=== PATIENT | male | born 1990 | race African-American/Black ===

== ENCOUNTER 2020-01-08 09:26 | Emergency (ER) | payer SELFPAY ==
[~2020-01-08] VITALS: Ht 182.9 cm; Wt 59.0 kg
[2020-01-08 09:36] VITALS: BP 128/70
--- NOTE | 2020-01-08 09:36 | NUR ---
ED Nurse Note:pt. was BIBA from home with abdominal pain for 2 hrs, A/ox4 ambulatory
[2020-01-08] MEDS ORDERED: FAMOTIDINE20 MG ORAL (09:57)
[2020-01-08] MEDS ORDERED: Lidocaine 2% Visc 15ml soln ORAL ONE (10:00)
[2020-01-08] MEDS ORDERED: Mylanta II UD 30ml ORAL ONE (10:00)
[2020-01-08] MEDS ORDERED: Dicyclomine HCl 10mg/5ml oral soln ORAL ONE (10:00)
--- NOTE | 2020-01-08 10:05 | NUR ---
ED Nurse Note: Pt cleared by health care Provider for discharge. DC instructions/prescription was given and explained to pt and verbalized understanding of teachings. All medical deviecs such as ID band removed. Pt is AAO x4, ambulatory and left with all personal belongings.
--- NOTE | 2020-01-09 07:20 | Emergency Room Report ---
History of Present Illness General Chief Complaint: Abdominal Pain Source: Patient Present Illness HPI 29-year-old male presents the ED for abdominal pain and vomiting. Brought in by EMS from home. States symptoms started yesterday after eating some dragon fruit. Pain was epigastric, burning, 6 out of 10, nonradiating. Noted one episode of vomiting and one episode of diarrhea. States since he got here pain is dramatically subsided. Denies fevers or chills. Denies chest pain or shortness of breath. No other aggravating relieving factors. Denies any other associated symptoms Allergies: Coded Allergies: No Known Allergies (Unverified , 01/08/20) COVID-19 Screening Contact w/high risk pt: No Experienced COVID-19 symptoms?: No COVID-19 Testing performed REPAIR DEPARTMENT MANAGER: No Patient History Past Medical History: none Past Surgical History: none Pertinent Family History: none Social History: Denies: smoking, alcohol use, drug use Immunizations: UTD Reviewed Nursing Documentation: PMH: Agreed; PSxH: Agreed Nursing Documentation-PMH Past Medical History: No Stated History Review of Systems All Other Systems: negative except mentioned in HPI Physical Exam Vital Signs Date Time Temp Pulse Resp B/P (MAP) Pulse Ox O2 Delivery O2 Flow Rate FiO2 01/08/20 09:25 98.1 70 16 128/70 (89) 99 Room Air Sp02 EP Interpretation: reviewed, normal General Appearance: no apparent distress, alert, GCS 15, non-toxic Head: normocephalic, atraumatic Eyes: bilateral eye normal inspection, bilateral eye PERRL ENT: hearing grossly normal, normal pharynx, no angioedema, normal voice Neck: full range of motion, supple/symm/no masses Respiratory: chest non-tender, lungs clear, normal breath sounds, speaking full sentences Cardiovascular #1: regular rate, rhythm, no edema Cardiovascular #2: 2+ carotid (R), 2+ carotid (L), 2+ radial (R), 2+ radial (L), 2+ dorsalis pedis (R), 2+ dorsalis pedis (L) Gastrointestinal: normal bowel sounds, non tender, soft, non-distended, no guarding, no rebound Rectal: deferred Genitourinary: normal inspection, no CVA tenderness Musculoskeletal: back normal, normal range of motion, gait/station normal, non- tender Neurologic: alert, motor strength/tone normal, oriented x3, sensory intact, responsive, speech normal Psychiatric: judgement/insight normal, memory normal, mood/affect normal, no suicidal/homicidal ideation Reflexes: 3+ bicep (R), 3+ bicep (L), 3+ tricep (R), 3+ tricep (L), 3+ knee (R), 3+ knee (L) Lymphatic: no adenopathy Medical Decision Making Diagnostic Impression: Primary Impression: Gastritis Qualified Codes: K29.00 - Acute gastritis without bleeding ER Course Hospital Course 29-year-old male presents to ED with epigastric pain with N/V. differential diagnosis: gastritis, SBO, cholecystits Clinical course Patient placed on stretcher. On cardiac sonographer. Initial history physical exam reveals male in no acute distress. Abdomen soft. No guarding or rebound. Patient noted that the pain was epigastric. Symptoms resolved. Patient lines and IV access or blood draw. Agrees to p.o. Pepcid and GI cocktail here. Safe for discharge with close outpatient follow-up. I will provide referrals I feel this is a highly complex case requiring extensive working including EKG/Rhythm strip, Xray/CT/US, Blood/urine lab work, repeat exams while in ED, and administration of strong opiates/narcotics for pain control, admission to hospital or close patient follow up. Diagnosis - gastritis Stable and discharged to home with prescriptions for Pepcid. Followup with PMD. Return to ED if symptoms recur or worsen Last Vital Signs Date Time Temp Pulse Resp B/P (MAP) Pulse Ox O2 Delivery O2 Flow Rate FiO2 01/08/20 10:05 98.1 70 16 128/70 99 Room Air Status: improved Disposition: HOME, SELF-CARE Condition: Stable Scripts Famotidine* (Pepcid 20mg tablet*) 20 Mg Tablet 20 MG ORAL DAILY for Gerd, #30 TAB 0 Refills Prov: Mario Hardy MD 01/08/20 Referrals: NOT CHOSEN IPA/,REFERRING (PCP) Octavia [facility] Patient Instructions: Gastritis, Adult, [id number] Mario Hardy MD Jan 09, 2020 07:20
== END 2020-01-08 10:05 | disposition home or self-care (01) ==
LOC: EDBD 09:26 → EMR 10:05
DX: K29.00 Acute gastritis without bleeding (principal)
CPT/HCPCS: 99283